=== PATIENT | female | born 1960 | race Caucasian/White ===

== ENCOUNTER 2017-05-02 14:50 | Day surgery (SDC) | payer OTHER ==
[~2017-05-02] VITALS: Ht 149.9 cm; Wt 112.7 kg
[~2017-05-02 14:50] MED LIST: IBUP-1542 PO; OXYC-281 PO; PEN500 PO
[2017-05-02 15:34] VITALS: Ht 149.9 cm; Wt 112.7 kg
[2017-05-02] MEDS ORDERED: AMLO1CAP14 PO (15:44)
[2017-05-02] MEDS ORDERED: MOME13HF2 INHALATION (15:44)
[2017-05-02] MEDS ORDERED: ALBU18HF INHALATION (15:44)
[2017-05-02] MEDS ORDERED: METF500T4 PO (15:44)
[2017-05-02] MEDS ORDERED: HYDR12.58 PO (15:44)
[2017-05-02] MEDS ORDERED: LISI10TA2 PO (15:44)
[2017-05-02] MEDS ORDERED: PROPOFOL 60 ML ONE (16:06)
[2017-05-02] MEDS ORDERED: LIDOCAINE 2% (SDV) 5 ML INJ ONE (16:06)
--- NOTE | 2017-05-02 17:00 | OPPN ---
Date/Time of Note Date/Time of Note DATE: 05/02/17 TIME: 16:58 Operative Report Preoperative Diagnosis Screening Postoperative Diagnosis Flat polyp in the cecum and biopsies were taken Internal hemorrhoids Operation/Procedure Performed Colonoscopy and biopsy Provider: BARI GONZALEZ MD Anesthesia Type: MAC Estimated blood loss: none Transfusion Required: no Specimens Cecal polyp Grafts/Implants: none Complications: no BARI GONZALEZ MD May 02, 2017 16:59
[2017-05-02 17:20] VITALS: BP 137/70; RESP 14
--- NOTE | 2017-05-02 19:15 | GILP ---
DATE OF PROCEDURE: 05/02/2017 PROCEDURE PERFORMED: Colonoscopy and biopsy. SURGEON: Jr Quezada MD PREOPERATIVE DIAGNOSIS: Screening colonoscopy. POSTOPERATIVE DIAGNOSES: 1. Colonoscopy all the way to the cecum. 2. Flat polyp in the cecum with multiple biopsies taken for histopathology. 3. Internal hemorrhoids. INDICATIONS FOR PROCEDURE: Ms. Samantha Vargas is a 56-year-old female patient who was scheduled for screening colonoscopy. The procedure and possible complications were well explained to the patient. She understood and consented to the procedure. DESCRIPTION OF PROCEDURE: Under influence of anesthesia, the colonoscope was carefully introduced in the rectum. Under direct vision, it was advanced all the way to the cecum. Findings, the patient had a flat polyp in the cecum and multiple biopsies were taken for histopathology. She was noted to have internal hemorrhoids. She tolerated the procedure very well. There was no complication from the procedure. At the end of procedure, she was awake with stable vital signs and she was discharged home in care of her family. IMPRESSION: Please see postop diagnoses. PLAN: 1. Await histopathology report. 2. After reviewing the histopathology report, the timing for the next colonoscopy will be decided. Dictated By: MD JOYCE Orozco/shashi/win /Document#: [id number]
== END 2017-05-02 18:02 | disposition home or self-care (01) ==
LOC: GIL 14:50
PROVIDERS: ATTEND Internal Medicine Gastroenterology
DX: Z12.11 Encounter for screening for malignant neoplasm of colon (principal); D12.0 Benign neoplasm of cecum; K64.8 Other hemorrhoids; E78.5 Hyperlipidemia, unspecified; E11.9 Type 2 diabetes mellitus without complications; J44.9 Chronic obstructive pulmonary disease, unspecified; I10 Essential (primary) hypertension; E66.01 Morbid (severe) obesity due to excess calories; Z68.43 Body mass index [BMI] 50.0-59.9, adult
CPT/HCPCS: 45380; 82962; 88305; Z7610